=== PATIENT | female | born 1960 | race Caucasian/White ===

== ENCOUNTER 2020-12-12 10:56 | Outpatient (CLI) | payer OTHER, SELFPAY | END 2020-12-12 10:57 | disposition home or self-care (01) | PROVIDERS: PCP Family Medicine; Visit Provider Urology | DX: N39.3 Stress incontinence (female) (male) (principal) | CPT/HCPCS: 87086; 87088 ==

== ENCOUNTER → 2020-12-19 03:57 | Outpatient (CLI) | payer OTHER, SELFPAY ==
[2020-12-19 20:06] LABS: SARS-CoV-2 RNA PCR Negative
== END ==
PROVIDERS: PCP Family Medicine; Visit Provider Urology
DX: Z01.812 Encounter for preprocedural laboratory examination (principal); Z20.822 Contact with and (suspected) exposure to COVID-19
CPT/HCPCS: C9803; U0003; U0005

== ENCOUNTER 2020-12-22 01:55 | Day surgery (SDC) | payer OTHER, SELFPAY ==
[2020-12-12 10:44] VITALS: BMI 26.3
--- NOTE | 2020-12-15 19:25 | P.HP_ITS ---
H&P: HPI History of Present Illness Date/Time: 12/15/20 19:25 60-year-old woman with a history of stress incontinence here for surgical correction Chief Complaint: MAI Review of Systems Review of Systems: All systems reviewed & are unremarkable except as noted in HPI and below PMFSH Social History Social History Smoking status: Never smoker Second hand tobacco smoke exposure: No Alcohol intake: never Substance use: never Substance use type: does not use Spiritual care concerns: No Meds Home Medications and Allergies Home Medications Medication Instructions Recorded Confirmed Type ascorbic acid (vitamin C) [Vitamin 500 mg PO DAILY 12/12/20 12/12/20 History C] aspirin [Aspir-81] 81 mg PO DAILY 12/12/20 12/12/20 History multivitamin [Multi-Vitamin] 1 tablet PO DAILY 12/12/20 12/12/20 History zinc 1 tablet PO QAM 12/12/20 12/12/20 History Allergies Allergy/AdvReac Type Severity Reaction Status Date / Time No Known Allergies Allergy Unverified 12/12/20 10:41 Exam Const: General: cooperative and healthy appearing HENMT: Head: normal to inspection Eyes: General: appearance normal, both eyes and all related structures Neck: Neck: normal visual inspection Resp: Effort & Inspection: normal respiratory effort and able to speak in co mplete sentences Skin: General skin exam: normal color and no rashes or lesions noted Neuro: General: oriented to person and oriented to place Assessment and Plan Assessment and plan (1) MAI (stress urinary incontinence, female): Code(s): N39.3 - Stress incontinence (female) (male) Status: Acute Assessment and Plan: urethral sling
--- NOTE | 2020-12-21 12:56 | P.PNAN_ITS ---
Anes - Initial Pre Proc Eval Procedure: Operation Date: 12/22/20 08:15 Proposed Procedures p Urethral Sling - Jd Devlin MD Date/Time: 12/21/20 12:56 Surgeon: Jd Devlin MD Pre Op Diagnosis: stress incontinence Patient Data Age: 60 Gender: F Height: 1.68 m Weight: 74 kg Allergies Allergy/AdvReac Type Severity Reaction Status Date / Time No Known Allergies Allergy Unverified 12/12/20 10:41 Home Medications Medication Instructions Recorded Confirmed Type ascorbic acid (vitamin C) [Vitamin 500 mg PO DAILY 12/12/20 12/12/20 History C] aspirin [Aspir-81] 81 mg PO DAILY 12/12/20 12/12/20 History multivitamin [Multi-Vitamin] 1 tablet PO DAILY 12/12/20 12/12/20 History zinc 1 tablet PO QAM 12/12/20 12/12/20 History PMFSH Past Medical History Medical History (Updated 12/21/20 @ 12:56 by Osman Becerril MD) MAI (stress urinary incontinence, female) Social History Social History Smoking status: Never smoker Second hand tobacco smoke exposure: No Alcohol intake: never Substance use: never Substance use type: does not use Spiritual care concerns: No Anes - Eval Final PreProcedure Day of Procedure 12/21/20 12:56 Patient weight: overweight Heart: regular rate and rhythm Lungs: clear to auscultation and normal air movement Airway: Mallampati scale class II Neurological: alert and oriented Last oral intake: >/= 8 hours ASA classification: II Emergent: no Anesthetic plan: proceed Anesthesia type and monitoring: general GIVS, LMA and ETT Informed Consent: The patient's anesthetic plan and its attendant risks and bene fits were discussed with the patient/family/POA. Questions were solicited and answers provided to the satisfaction of the patient/family/POA.
[2020-12-22] MEDS: LACTATED RINGERS 1,000 ML 30 ML IV CONT (06:46)
[2020-12-22 07:02] VITALS: BP 112/63; PULSE 67; RESP 18; TEMP 36; O2SAT 98
--- NOTE | 2020-12-22 07:15 | WPDHPUPDATE1 ---
History and Physical Update Update Date/Time: 12/22/20 07:15 History and Physical has been reviewed, including an updated exam of the patient. There are NO changes in the patient's condition. Risks, benefits, and alternatives have been discussed and questions answered. Patient agrees to proceed with procedure.
--- NOTE | 2020-12-22 07:58 | P.PNAN_ITS ---
Anes - Initial Pre Proc Eval Procedure: Operation Date: 12/22/20 08:15 Proposed Procedures p Urethral Sling - Jd Devlin MD Date/Time: 12/22/20 07:58 Surgeon: Jd Devlin MD Pre Op Diagnosis: stress incontinence Patient Data Age: 60 Gender: F Height: 5 ft 6 in Weight: 73.4 kg Last Vital Signs Temp 96.8 F L 12/22/20 07:02 Pulse 67 12/22/20 07:02 Resp 18 12/22/20 07:02 BP 112/63 12/22/20 07:02 Pulse Ox 98 12/22/20 07:02 Allergies Allergy/AdvReac Type Severity Reaction Status Date / Time No Known Allergies Allergy Unverified 12/22/20 07:00 Home Medications Medication Instructions Recorded Confirmed Type ascorbic acid (vitamin C) [Vitamin 500 mg PO DAILY 12/12/20 12/22/20 History C] aspirin [Aspir-81] 81 mg PO DAILY 12/12/20 12/22/20 History multivitamin [Multi-Vitamin] 1 tablet PO DAILY 12/12/20 12/22/20 History zinc 1 tablet PO QAM 12/12/20 12/22/20 History Patient hx anesthesia problems: none Family hx anesthesia problems: none [facility] Past Medical History Medical History (Updated 12/21/20 @ 12:56 by Osman Becerril MD) MAI (stress urinary incontinence, female) Social History Social History Smoking status: Never smoker Second hand tobacco smoke exposure: No Alcohol intake: never Substance use: never Substance use type: does not use Living arrangements: with family Spiritual care concerns: No Anes - Eval Final PreProcedure Day of Procedure 12/22/20 07:58 Patient weight: overweight Heart: regular rate and rhythm Lungs: clear to auscultation Airway: Mallampati scale class II Neurological: alert and oriented Last oral intake: >/= 8 hours ASA classification: II Emergent: no Anesthetic plan: proceed Anesthesia type and monitoring: general LMA and standard monitoring Informed Consent: The patient's anesthetic plan and its attendant risks and benefits were discussed with the patient/family/POA. Questions were solicited and answers provided to the satisfaction of the patient/family/POA.
[2020-12-22] MEDS: ceFAZolin 2 GM/D5W 50 ML 2 GM/50 ML BAG IVPB (08:13)
[2020-12-22] MEDS: LIDO 1%/EPINEPHRINE 1:100,000 50 ML VIAL 10 ML INFILTRATE (08:29)
[2020-12-22 08:40] VITALS: BP 103/56; PULSE 59; RESP 14; O2SAT 95
--- NOTE | 2020-12-22 08:41 | PM.PROC ---
Procedure Note - Detailed Date of procedure: 12/22/20 Pre-op diagnosis: stress incontinence Stress urinary incontinence Post-op diagnosis: same Procedure performed: Transobturator Mid-urethral sling Cystoscopy Description of procedure: Anesthesia: Mac/local This is a patient with confirmed stress urinary incontinence. She desires correction. She understands the risks of bleeding, infection, damage to the urinary tract, lack of cure of stress incontinence, recurrence of stress incontinence, postoperative voiding dysfunction including incontinence and retention, need for ancillary procedures to loosen remove the sling, postoperative voiding dysfunction including retention and overactive bladder, hip and leg pain, dyspareunia, mesh related complications including exposure and extrusion. She agrees to proceed. She understands it will not help overactive bladder symptoms if present. She was correctly identified and informed consent obtained. She is brought to the operating room. She was given appropriate anesthesia. She was placed in the dorsal lithotomy position. All pressure points were padded. She was given appropriate perioperative antibiotics and a time-out performed. A Richmond catheter is placed. I marked out the thigh incisions anesthetize the skin and made those incisions. I anesthetized the anterior vaginal wall over the mid urethra. I made a 1 cm incision. I dissected out laterally taking great care not to injure the urethra or the vaginal wall. Passed the helical trocars 1st on the left and then on the right from the thigh incision towards the vaginal incision. Sling was connected to the trocars and brought out through the thigh incision. I tensioned the sling appropriately. I cut and removed the plastic sheaths. I closed the incision with 2 0 Vicryl. I then performed cystoscopy. There was no surgical artifact or abnormalities inside the bladder. The urethra was normal without surgical artifact. I cut the excess sling material. I closed the incisions with glue. She was awakened and transferred to the PACU in stable condition. Implants: Mid urethral sling Surgeon: Jd Devlin MD Drains: No Packing: No Pathology: none sent Complications: No immediate complications Condition: stable Disposition: PACU
[2020-12-22 09:10] VITALS: BP 138/65; PULSE 68; RESP 14; O2SAT 100
[2020-12-22 09:30] VITALS: BP 126/67; PULSE 62; RESP 14
== END 2020-12-22 09:47 | disposition home or self-care (01) ==
PROVIDERS: PCP Family Medicine; Visit Provider Urology
PROC: (CPT 57288; principal; 2020-12-22 08:15)
DX: N39.3 Stress incontinence (female) (male) (principal)
CPT/HCPCS: 57288; A9270; C1771; J0690; J2704; J3010; J7030; J7120

== ENCOUNTER → 2021-09-05 08:57 | Outpatient (CLI) | payer OTHER, SELFPAY ==
[2021-09-05 17:57] LABS: SARS-CoV-2 RNA PCR Negative
== END ==
PROVIDERS: PCP Internal Medicine; Visit Provider Internal Medicine
DX: Z20.822 Contact with and (suspected) exposure to COVID-19 (principal)
CPT/HCPCS: C9803; U0003; U0005

== ENCOUNTER 2025-01-13 12:19 | Outpatient (CLI) | payer MEDICARE, SELFPAY ==
--- NOTE | ~2025-01-13 | MM_ITS ---
EXAMINATION: MM screening jarrod BI w jade HISTORY: Screening TECHNIQUE: Craniocaudal and mediolateral oblique 3-D tomosynthesis images were obtained and synthetic 2-D images were generated. CAD analysis was submitted and interpreted. COMPARISON: No prior mammogram is available for comparison at this institution. BREAST PARENCHYMAL COMPOSITION: Not dense: There are scattered areas of fibroglandular density. FINDINGS: There is no evidence of suspicious mass, calcification, or architectural distortion to sugg est malignancy in either breast. There has been no suspicious interval change. IMPRESSION: 1. No mammographic evidence of malignancy. 2. Recommend routine screening mammography in one year. BI-RADS Category 1: Negative Reviewed, dictated and finalized at location B.
--- OUTSIDE RECORDS SUMMARY | 2025-01-13 12:51 | XMS_ITS | Clinical Summary ---
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 Gender Identity Not on file Sexual Orientation Not on file Plan of Treatment Health Maintenance Due Date Last Done Comments DEXA Bone Density 1959 Hepatitis C Virus (HCV) Screening 1959 TdaP Immunization 1959 Pap Smear 1980 Cervical Cancer Screening (CCS) 1989 HPV/Cotest 1989 Colonoscopy 2004 Colorectal Cancer Screening 2004 Cologuard 2009 Immunochemical Fecal Occult Blood 2009 Mammogram 2009 Pneumococcal Immunization (5 0+ years) (1 of 1 - PCV) 2009 Zoster Immunization (1 of 2) 2009 Influenza Immunization (#1) 2024 SARS-COV-2 Immunization (2023-25 season) 2024 Respiratory Syncytial Virus (RSV) Immunization (Adult) (1 - 1-dose 75+ series) 2034 Hepatitis B Immunization Aged Out No longer eligible based on patient's age to complete this topic Meningococcal Immunization (ACWY) Aged Out No longer eligible based on patient's age to complete this topic Pneumococcal Immunization Combined Aged Out No longer eligible based on patient's age to complete this topic Rotavirus Immunization Aged Out No lo nger eligible based on patient's age to complete this topic
--- OUTSIDE RECORDS SUMMARY | 2025-01-13 12:51 | XMS_ITS | Clinical Summary ---
Author Organization [facility] [address] Address [address] [place] [id number] Care Team Providers Care Full Stack Python Developer Name Role Phone Anila Dyer MD Unavailable [phone] Annamaria Cueva NP Primary Care Provider [phone] Allergies No known active allergies Medications aspirin 81 mg enteric coated tablet Take 1 tablet (81 mg total) by mouth daily Active vitamin B complex with vitamin C tabletIndication s:Vitamin Deficiency Prevention Take 1 tablet by mouth daily Active zinc gluconate 100 mg tablet Take by mouth Active ascorbic acid (ascorbic acid with alena hips) 500 mg tablet,chewable Acti ve Active Problems Problem Noted Date Diagnosed Date Annual physical exam 10/16/2023 Assessment & Plan (10/20/2024 7:20 AM CDT): -Recommended: Healthy diet. Avoiding junk food/fast food. -30 minutes of exercise most days of the week. Increase to 45 minutes for weight loss. Health Maintenance reviewed - patient has an up-to-date today mammogram and colonoscopy. Labs ordered today. We will get records of the mammogram and colonoscopy.. -Influenza vaccine every year Recommend: - Topic Date Due DTaP/Tdap/Td Vaccine (1 - Tdap) Never done -F/u in 1 year for Annual PE or sooner if needed Assessment & Plan (10/16/2023 2:28 PM CDT): -Recommended: Healthy diet. Avoiding junk food/fast food. -30 minutes of exercise most days of the week. Increase to 45 minutes for weight loss. Health Maintenance reviewed - patient has an up-to-date today mammogram and colonoscopy. Labs ordered today. We will get records of the mammogram and colonoscopy.. -Influenza vaccine every year Recommend: - Topic Date Due DTaP/Tdap/Td Vaccine (1 - Tdap) Never done -F/u in 1 year for Annual PE or sooner if needed Trigger middle finger of left hand 10/16/2023 Assessment & Plan (10/16/2023 2:42 PM CDT): Refer to orthopedics. Recommended massage and keeping flexible. Rash and nonspecific skin eruption 10/16/2023 Assessment & Plan (10/16/2023 2:42 PM CDT): Unknown etiology. Checking labs today. Refer to dermatology Encounters Date Type Department Care Team Description 10/21/2024 Documentation [facility] at [address] [phone] Annamaria Cueva NP 10/21/2024 Results Follow-Up [facility] at [address] [phone] Annamaria Cueva NP Hemoglobin A1c, CBC with auto differential, Comprehensive metabolic panel, Additional followed-up results: 4 10/20/2024 8:01 AM CDT - 10/20/2024 11:59 PM CDT Hospital Encounter [place] [phone] Screening for diabetes mellitus; Screening for deficiency anemia; Screening for metabolic disorder; Lipid screening; Thyroid disorder screen Discharge Disposition: Discharge to home or self care 10/20/2024 8:00 AM CDT Lab [facility] at [address] [phone] Screening for deficiency anemia (Primary Dx) 10/20/2024 7:00 AM CDT Office Visit [facility] at [address] [phone] Annamaria Cueva NP Screening for deficiency anemia (Primary Dx); Screening for metabolic disorder; Lipid screening; Thyroid disorder screen; Screening for diabetes mellitus; Medicare annual wellness visit, subsequent from Last 3 Months Immunizations Immunization Administration Dates Next Due Influenza LAIV (Nasal) 10/16/2023(Deferr ed: Patient Refused),08/04/2022(Deferred: Patient Refused) Family History Medical History Relation Name Comments Heart disease Father Carlos A Stroke Father Carlos A Relation Name Status Comments Brother Alive Father Carlos A Mother Alive Social History Tobacco Use Types Packs/Day Years Used Date Smoking Tobacco: Never Cigarettes Smokeless Tobacco: Never PHQ-2 Answer Date Recorded PHQ-2 Total Score (If total score is 3 or more points, staff should administer the PHQ-9) 0 10/20/2024 Comments Unknown Sex and Gender Information Value Date Recorded Sex Assigned at Not on file 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 Gender Identity Not on file Sexual Orientation Not on file Obstetrics History Last Filed Vital Signs Vital Sign Reading Time Taken Comments Blood Pressure 104/68 10/20/2024 7:04 AM CDT Pulse 56 10/20/2024 7:04 AM CDT Temperature 36.3 C (97.4 F) 10/20/2024 7:04 AM CDT Respiratory Rate 18 10/20/2024 7:04 AM CDT Oxygen Saturation 96% 10/20/2024 7:04 AM CDT Inhaled Oxygen Concentration - - Weight 77.5 kg (170 lb 14.4 oz) 10/20/2024 7:04 AM CDT Height 167.6 cm (5' 6) 10/20/2024 7:04 AM CDT Body Mass Index 27.58 10/20/2024 7:04 AM CDT Plan of Treatment Health Maintenance Due Date Last Done Comments Cervical Cancer Screening 1959 Hepatitis C Screening 1959 DTaP/Tdap/Td Vaccine (1 - Tdap) 1970 Hepatitis B Screening 1977 Pneumococcal vaccine 65+ (1 of 1 - PCV) 2009 Zoster Vaccine (1 of 2) 2009 Covid-19 Vaccine (3 - season) 2024, 10/07/2020 Colon Cancer Screening-Colonoscopy 11/24/20242017 Breast Cancer Screening-Mammogram 12/14/2024 025, 12/15/2023 Influenza Vaccine (Season Ended) 2025 Depression Screening 10/20/2025 10/20/2024, 10/16/19 Fall Risk Assessment 10/20/2025 10/20/2024 Well Visit 65+ 10/20/2025 10/20/2024, 10/16/2023 Osteoporosis Screening-Bone Density Scan 12/14/2025 10/21/2024 Procedures Procedure Name Priority Date/Time Associated Diagnosis Comments DEXA AXIAL SKELETON BONE DENSITY 1 OR MORE SITES Schedule Routine, Read Routine (OP Routine) 10/21/2024 10:22 AM CDT SCREENING MAMMOGRAM Schedule Routine, Read Routine (OP Routine) 10/21/2024 10:21 AM CDT EGFR Routine 10/20/2024 8:01 AM CDT Screening for metabolic disorder DIFFERENTIAL AUTO Routine 10/20/2024 8:0 1 AM CDT Screening for deficiency anemia THYROID FUNCTION CASCADE Routine 10/20/2024 8:01 AM CDT Thyroid disorder screen LIPID PANEL Routine 10/20/2024 8:01 AM CDT Lipid screening COMPREHENSIVE METABOLIC PANEL Routine 10/20/2024 8:01 AM CDT Screening for metabolic disorder CBC WITH AUTO DIFFERENTIAL Routine 10/20/2024 8:01 AM CDT Screening for deficiency anemia HEMOGLOBIN A1C Routine 10/20/2024 8:01 AM CDT Screening for diabetes mellitus COLONOSCOPY Routine 11/24/2017 from Last 3 Months or Most Recently Relevant to Health Maintenance Results * Dexa Axial Skeleton Bone Density 1 or 2 Site (10/21/2024 10:22 AM CDT) Anatomical Region Laterality Modality Body N/A Radiographic Irena ging us Historical Provider MD HOYOS DXA PROCEDURES Final Result * Screening Mammogram (10/21/2024 10:21 AM CDT) Anatomical Region Laterality Modality Breast N/A Mammography us Historical Provider MD HOYOS MAMMO PROCEDURES Denisse l Result * (ABNORMAL) eGFR (10/20/2024 8:01 AM CDT) eGFR 55(L) >=60 mL/min/1. 73 m2 Comment: Interpretive Data Reference Interval Normal >/= 90 mL/min/1.73m2 Mildly decreased* 60 - 89 mL/min/1.73m2 Mildly to moderately decreased 45 - 59 mL/min/1.73m2 Moderately to severely decreased 30 - 44 mL/min/1.73m2 Severely decreased 15 - 29 mL/min/1.73m2 Kidney Failure < 15 mL/min/1.73m2 *Relative to young adult level Estimated glomerular filtration rate is determined by the 2020 CKD-EPI equation recommended by the National Kidney Foundation (A Unifying Approach to GFR Estimation: Recommendations of the NKF-ASK Task Force on Reassessing the Inclusion of Race in Diagnosing Kidney Disease, JASN 2020). The CKD-EPI equation should not be used for patients with unstable renal function and has not been validated in children and those over 70. Current interpretive data was last reviewed 2021. Blood 10/20/2024 8:01 AM CDT 10/20/2024 7:07 PM CDT Annamaria Cueva NP LAB BLOOD ORDERABLES Final Re sult [facility] [id number] Department [place] [address] * Differential, auto (10/20/2024 8:01 AM CDT) Neutrophil abs 2.7 1.5 - 6.5 K/cumm Imm gran abs 0.0 0.0 - 0.1 K/cumm [facility] Lymphocyte abs 1.7 0.8 - 3.3 K/cumm [facility] Monocyte abs 0.5 0.2 - 0.8 K/cumm [facility] Eosinophil abs 0.3 0.0 - 0.5 K/cumm [facility] Basophil abs 0.0 0.0 - 0.1 K/cumm [facility] Neutrophil pct 53.1 % [facility] Comment: Interpretive Data Percent cell count reference ranges are not reported, since discordance with absolute values may lead to misinterpretation of CBC data. Current Interpretive Data was last revised on 2017. Imm gran pct 0.2 % [facility] Comment: Interpretive Data Percent cell count reference ranges are not reported, since discordance with absolute values may lead to misinterpretation of CBC data. Current Interpretive Data was last revised on 2017. Lymphocyte pct 32.2 % [facility] Comment: Interpretive Data Percent cell count reference ranges are not reported, since discordance with absolute values may lead to misinterpretation of CBC data. Current Interpretive Data was last revised on 2017. Monocyte pct 8.9 % [facility] Comment: Interpretive Data Percent cell count reference ranges are not reported, since discordance with absolute values may lead to misinterpretation of CBC data. Current Interpretive Data was last revised on 2017. Eosinophil pct 5.0 % [facility] Comment: Interpretive Data Percent cell count reference ranges are not reported, since discordance with absolute values may lead to misinterpretation of CBC data. Current Interpretive Data was last revised on 2017. Basophil pct 0.6 % [facility] Comment: Interpretive Data Percent cell count reference ranges are not reported, since discordance with absolute values may lead to misinterpretation of CBC data. Current Interpretive Data was last revised on 2017. Blood 10/20/2024 8:01 AM CDT 10/20/2024 6:56 PM CDT Annamaria Cueva NP LAB BLOOD ORDERABLES Final Re sult [facility] [id number] [address] Department [place] [address] * Thyroid Function Van (10/20/2024 8:01 AM CDT) TSH 2.86 0.30 - 4.20 mcIUnit/mL Blood 10/20/2024 8:01 AM CDT 10/20/2024 6:56 PM CDT Annamaria Cueva NP LAB BLOOD ORDERABLES Final Re sult Performing Organization Address City/[facility]/ZIP Co de Phone Number STEPH[facility]IE GRAC[facility] [phone] [address] Department of [employer] [place], [place] [id number] * (ABNORMAL) CBC with auto differential (10/20/2024 8:01 AM CDT) WBC 5.2 3.8 - 9.9 K/cumm Hgb 13.9 11.9 - 15.5 g/dL [facility] Hct 44.5 35.6 - 45.5 % [facility] Plt 217 150 - 400 K/cumm [facility] MPV 11.5 9.1 - 12.3 fL [facility] RBC 4.56 3.90 - 5.20 M/cumm [facility] MCV 97.6(H) 81.3 - 96.4 fL [facility] MCH 30.5 27.1 - 33.3 pg [facility] MCHC 31.2(L) 32.3 - 35.7 g/dL [facility] RDW CV 13.0 11.1 - 14.9 % [facility] RDW SD 46.6 35.7 - 48.1 fL [facility] NRBC abs 0.00 0.00 - 0.01 K/cumm [facility] Blood 10/20/2024 8:01 AM CDT 10/20/2024 6:56 PM CDT Annamaria Cueva NP LAB BLOOD ORDERABLES Final Re sult Performing Organization Address City/[facility]/ZIP Co de Phone Number STEPH[facility]IE GRAC[facility] [id number] [address] Department of [employer] [place], [place] [phone] * Hemoglobin A1c (10/20/2024 8:01 AM CDT) Hgb A1C 5.4 4.0 - 5.6 % Estimated Average Glucose 108 mg/dL [facility] Comment: The ADA recommends reporting an estimated Average Glucose (eAG) with all Hemoglobin A1c results using the equation derived from a study of 507 normal and diabetic adults. Minority populations were underrepresented and children were not included. (Diabetes Care 31:9990-5071, 2008). The eAG is not equivalent to a fasting glucose. Blood 10/20/2024 8:01 AM CDT 10/20/2024 6:56 PM CDT us Annamaria Cueva NP LAB BLOOD ORDERABLES Final Re sult [facility] [address] [address] Department [place] [address] * (ABNORMAL) Lipid panel (10/20/2024 8:01 AM CDT) Cholesterol 273(H) 30 - 199 mg/dL Comment: Interpretive Data Ages < or = 19 years Acceptable: <170 mg/dL Borderline high: 170-199 mg/dL High: >or= 200 mg/dL Ages > or = 20 years Desirable: <200 mg/dL Borderline high: 200-239 mg/dL High: >or= 240 mg/dL Literature References: 1. Expert Panel on Integrated Guidelines for Cardiovascular Health and Risk Reduction in Children and Adolescents. Pediatrics 2011;128:S213 2. NCEP Expert Panel. Circulation 2004;110:227 Current Interpretive Data was last revised on 2018. Triglycerides 101 <=149 mg/dL [facility] Comment: Interpretive Data Ages < or = 9 years Acceptable: <75 mg/dL Borderline high: 75-99 mg/dL High: >or= 100 mg/dL Ages 10 to 20 years Acceptable: <90 mg/dL Borderline high: 90-129 mg/dL High: >or= 130 mg/dL Ages > or = 20 years Desirable: <150 mg/dL Borderline high: 150-199 mg/dL High: 200-499 mg/dL Very high: >or= 499 mg/dL Literature References: 1. Expert Panel on Integrated Guidelines for Cardiovascular Health and Risk Reduction in Children and Adolescents. Pediatrics 2011;128:S213 2. NCEP Expert Panel. Circulation 2004;110:227 Current Interpretive Data was last revised on 2018. HDL 51 >=40 mg/dL [facility] Comment: Interpretive Data Ages < or = 19 years Acceptable: >45 mg/dL Borderline low: 40-45 mg/dL Low: <40 mg/dL Ages > or = 20 years Desirable: >or= 60 mg/dL Low: <40 mg/dL Literature References: 1. Expert Panel on Integrated Guidelines for Cardiovascular Health and Risk Reduction in Children and Adolescents. Pediatrics 2011;128:S213 2. NCEP Expert Panel. Circulation 2004;110:227 Current Interpretive Data was last revised on 2018. LDL, calculated 204(H) <=129 mg/dL [facility] Comment: Interpretive Data Ages < or = 19 years Acceptable: <110 mg/dL Borderline high: 110-129 mg/dL High: >or= 130 mg/dL Ages > or = 20 years Optimal: <100 mg/dL Near optimal: 100-129 mg/dL Borderline high: 130-159 mg/dL High: >160 mg/dL Calculated using the Bill LDL-C estimating equation. This equation was implemented on 2024. Prior to this date LDL-C was estimated using the Friedewald equation. Literature References: 1. Expert Panel on Integrated Guidelines for Cardiovascular Health and Risk Reduction in Children and Adolescents. Pediatrics 2011;128:S213 2. NCEP Expert Panel. Circulation 2004;110:227 3. Bill Avtiia et al. ZACHARY Cardiol. 2019December 02;5(5):540-548. doi: 10.1001/[email or web address].2020.0013 Current Interpretive Data was last revised on 2024. Non-HDL Cholesterol 222 mg/dL [facility] Comment: Interpretive Data Ages < or = 19 years Acceptable: <120 mg/dL Borderline high: 120-144 mg/dL High: >145 mg/dL Ages > or = 20 years When triglycerides are >200 mg/dL, Non-HDL cholesterol is a secondary target of therapy with treatment goals that are 30 mg/dL greater than the LDL cholesterol target. Literature References: 1. Expert Panel on Integrated Guidelines for Cardiovascular Health and Risk Reduction in Children and Adolescents. Pediatrics 2011;128:S213 2. NCEP Expert Panel. Circulation 2004;110:227 Current Interpretive Data was last revised on 2018. Chol/HDL ratio 5 [facility]AC[facility] Blood 10/20/2024 8:01 AM CDT 10/20/2024 6:56 PM CDT Annamaria Cueva NP LAB BLOOD [place] [address] [address] Department [place] [address] * (ABNORMAL) Comprehensive metabolic panel (10/20/2024 8:01 AM CDT) Sodium 139 135 - 145 mmol/L Potassium, pl 4.6 3.3 - 4.9 mmol/L [facility] Chloride 102 97 - 110 mmol/L [facility] CO2 25 22 - 32 mmol/L [facility] Anion gap 12 2 - 15 mmol/L [facility] BUN 21 6 - 25 mg/dL [facility] Creatinine 1.12(H) 0.60 - 1.10 mg/dL [facility] Glucose 87 70 - 199 mg/dL [facility] Comment: Interpretive Data Fasting glucose >/= 126 mg/dl is diagnostic for diabetes. Fasting is defined as no caloric intake for at least 8 hours. Fasting glucose between 100 mg/dl to 125 mg/dl is diagnostic of prediabetes. In a patient with classic symptoms of hyperglycemia or hyperglycemic crisis, a random glucose >/= 200 mg/dl is diagnostic for diabetes. In the absence of unequivocal hyperglycemia, results should be confirmed by repeat testing. The classification and Diagnosis of Diabetes Diabetes Care 202; 46: S19-S40. Current interpretive data was last revised 2022. Calcium 9.6 8.5 - 10.3 mg/dL [facility] Bilirubin, total 0.4 0.1 - 1.2 mg/dL [facility] Protein, pl 7.5 6.5 - 8.5 g/dL [facility] Albumin 4.4 3.5 - 5.0 g/dL [facility] Alk phos 78 40 - 130 Units/L [facility] ALT 25 7 - 45 Units/L [facility] AST 34 10 - 45 Units/L [facility] Blood 10/20/2024 8:01 AM CDT 10/20/2024 6:56 PM CDT Annamaria Cueva NP LAB BLOOD [place] [address] [address] Department [place] [address] * Colonoscopy (11/24/2017) Anatomical Region Laterality Modality Other us Historical Provider ENDOSCOPY PROCEDURES Denisse l Result from Last 3 Months or Most Recently Relevant to Health Maintenance Insurance [employer] MEDICARE REPLACED BY [facility] [id number] Care Teams Full Stack Python Developer Relationship Specialty Start Date End Date Annamaria Cueva NP [address] [place] [address] PCP - General Family Medicine 01/13/25 Anila Dyer MD [address] [place] [address] Obstetrics and Gynecology 10/20/24
--- OUTSIDE RECORDS SUMMARY | 2025-01-13 12:52 | XMS_ITS | Referral Summary ---
Author Organization [address] [address] Care Team Providers Care Artist And Repertoire Manager Name Role Phone Anila Dyer MD Unavailable [phone] Annamaria Cueva NP Primary Care Provider [phone] Encounters Date Type Department Care Team Description 10/21/2024 Documentation [facility] Medical [facility] at [address] [address] Annamaria Cueva NP 10/21/2024 Results Follow-Up [facility] at [address] [address] Annamaria Cueva NP Hemoglobin A1c, CBC with auto differential, Comprehensive metabolic panel, Additional followed-up results: 4 10/20/2024 8:01 AM CDT - 10/20/2024 11:59 [place] [address] Screening for diabetes mellitus; Screening for deficiency anemia; Screening for metabolic disorder; Lipid screening; Thyroid disorder screen Discharge Disposition: Discharge to home or self care 10/20/2024 8:00 AM CDT Lab [facility] at [address] [address] Screening for deficiency anemia (Primary Dx) 10/20/2024 7:00 AM CDT Office Visit [facility] at [address] [address] Annamaria Cueva NP Screening for deficiency anemia (Primary Dx); Screening for metabolic disorder; Lipid screening; Thyroid disorder screen; Screening for diabetes mellitus; Medicare annual wellness visit, subsequent from Last 3 Months Allergies No known active allergies Medications aspirin [...] etiology. Checking labs today. 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 Gender Identity Not on file Sexual Orientation Not on file Last Filed Vital Signs Vital Sign Reading [...] 10/20/2024 7:04 AM CDT Plan of Treatment Not on file Procedures Procedure Name Priority Date/Time Associated Diagnosis [...] Laterality Modality Body N/A Radiographic Irena ging Historical Provider MD HOYOS DXA PROCEDURES Final [...] NP LAB BLOOD ORDERABLES Final Re sult [facility] [address] Department [place] [address] * Differential, auto (10/20/2024 8:01 AM CDT) Neutrophil abs 2.7 1.5 - 6.5 K/cumm Imm gran abs 0.0 0.0 - 0.1 K/cumm [facility] Lymphocyte abs 1.7 0.8 - 3.3 K/cumm [facility] Monocyte abs 0.5 0.2 - 0.8 K/cumm [facility] Eosinophil abs 0.3 0.0 - 0.5 K/cumm [facility] Basophil abs 0.0 0.0 - 0.1 K/cumm [facility] Neutrophil pct 53.1 % [facility] Comment: Interpretive Data Percent cell count reference ranges are not reported, since discordance with absolute values may lead to misinterpretation of CBC data. Current Interpretive Data was last revised on 2017. Imm gran pct 0.2 % [facility] Comment: Interpretive Data Percent cell count reference ranges are not reported, since discordance with absolute values may lead to misinterpretation of CBC data. Current Interpretive Data was last revised on 2017. Lymphocyte pct 32.2 % [facility] Comment: Interpretive Data Percent cell count reference ranges are not reported, since discordance with absolute values may lead to misinterpretation of CBC data. Current Interpretive Data was last revised on 2017. Monocyte pct 8.9 % [facility] Comment: Interpretive Data Percent cell count reference ranges are not reported, since discordance with absolute values may lead to misinterpretation of CBC data. Current Interpretive Data was last revised on 2017. Eosinophil pct 5.0 % [facility] Comment: Interpretive Data Percent cell count reference ranges are not reported, since discordance with absolute values may lead to misinterpretation of CBC data. Current Interpretive Data was last revised on 2017. Basophil pct 0.6 % [facility] Comment: Interpretive Data Percent cell count reference ranges are not reported, since discordance with absolute values may lead to misinterpretation of CBC data. Current Interpretive Data was last revised on 2017. Blood 10/20/2024 8:01 AM CDT 10/20/2024 6:56 PM CDT Annamaria Cueva THERMODYNAMICIST LAB BLOOD ORDERABLES Final Re sult Performing Organization Address [facility] Co de Phone Number STEPHANIE GRACIA [address] [facility] [employer] [place], [place] [id number] * Thyroid Function [place] (10/20/2024 8:01 AM CDT) [facility] TSH 2.86 0.30 - 4.20 mcIUnit/mL Blood 10/20/2024 8:01 AM CDT 10/20/2024 6:56 PM CDT Annamaria Cueva NP LAB BLOOD ORDERABLES Final Re sult Performing Organization Address [facility] de Phone Number STEPHANIE GRACIA [address] [facility] [place] [address] * (ABNORMAL) CBC with auto differential (10/20/2024 8:01 AM CDT) Pathologist [facility] WBC 5.2 3.8 - 9.9 K/cumm Hgb 13.9 11.9 - 15.5 g/dL [facility] Hct 44.5 35.6 - 45.5 % [facility] Plt 217 150 - 400 K/cumm [facility] MPV 11.5 9.1 - 12.3 fL [facility] RBC 4.56 3.90 - 5.20 M/cumm [facility] MCV 97.6(H) 81.3 - 96.4 fL [facility] MCH 30.5 27.1 - 33.3 pg [facility] MCHC 31.2(L) 32.3 - 35.7 g/dL [facility] RDW CV 13.0 11.1 - 14.9 % [facility] RDW SD 46.6 35.7 - 48.1 fL [facility] NRBC abs 0.00 0.00 - 0.01 K/cumm [facility] Blood 10/20/2024 8:01 AM CDT 10/20/2024 6:56 PM CDT Annamaria Cueva NP LAB BLOOD ORDERABLES Final Re sult Performing Organization Address [facility] de Phone Number [facility] [address] [place] [address] * Hemoglobin A1c (10/20/2024 8:01 AM CDT) Hgb A1C 5.4 4.0 - 5.6 % Estimated Average Glucose 108 mg/dL [facility] Comment: The ADA recommends reporting an estimated Average Glucose (eAG) with all Hemoglobin A1c results using the equation derived from a study of 507 normal and diabetic adults. Minority populations were underrepresented and children were not included. (Diabetes Care 31:9656-4789, 2008). The eAG is not equivalent to a fasting glucose. Blood 10/20/2024 8:01 AM CDT 10/20/2024 6:56 PM CDT Annamaria Cueva NP LAB BLOOD ORDERABLES Final Re sult Performing Organization Address [facility] de Phone Number [facility] [address] [place] [address] * (ABNORMAL) Lipid panel (10/20/2024 8:01 AM [...] on 2018. Triglycerides 101 <=149 mg/dL [facility] Comment: Interpretive Data Ages < or = [...] on 2018. HDL 51 >=40 mg/dL [facility] Comment: Interpretive Data Ages < or = [...] 2018. LDL, calculated 204(H) <=129 mg/dL [facility] Comment: Interpretive Data Ages < or = [...] NCEP Expert Panel. Circulation 2004;110:227 3. Bill Avitia et al. ZACHARY Cardiol. 2019December 02;5(5):540-548. doi: 10.1001/jamacardio.2020.0013 Current Interpretive Data was last revised on 2024. Non-HDL Cholesterol 222 mg/dL [facility] Comment: Interpretive Data Ages < or = [...] last revised on 2018. Chol/HDL ratio 5 [facility] CH Blood 10/20/2024 8:01 AM CDT 10/20/2024 6:56 PM CDT Annamaria Cueva NP LAB BLOOD ORDERABLES Final Re sult [facility] [address] Department of Laboratories [place], [place] [phone] * (ABNORMAL) Comprehensive metabolic panel (10/20/2024 8:01 AM CDT) Sodium 139 135 - 145 mmol/L Potassium, pl 4.6 3.3 - 4.9 mmol/L [facility] Chloride 102 97 - 110 mmol/L [facility] CH CO2 25 22 - 32 mmol/L [facility] CH Anion gap 12 2 - 15 mmol/L [facility] CH BUN 21 6 - 25 mg/dL [facility] Creatinine 1.12(H) 0.60 - 1.10 mg/dL [facility] Glucose 87 70 - 199 mg/dL [facility] [...] NP LAB BLOOD ORDERABLES Final Re sult [facility] [address] Department [place] [address] * Colonoscopy (11/24/2017) Anatomical Region Laterality Modality Other Historical Provider ENDOSCOPY PROCEDURES Denisse l Result from Last 3 Months or Most Recently Relevant to Health Maintenance Insurance [facility] MEDICARE [facility] [id number] Care Teams Artist And Repertoire Manager Relationship Specialty Start Date End Date Annamaria Cueva NP [address] [place] [address] PCP - General Family Medicine 01/13/25 Anila Dyer MD [address] [place] [address] Obstetrics and Gynecology 10/20/24
== END 2025-01-13 12:20 | disposition home or self-care (01) ==
LOC: CHSIMG 12:20
PROVIDERS: PCP Nurse Practitioner Family; Visit Provider Obstetrics & Gynecology
DX: Z12.31 Encounter for screening mammogram for malignant neoplasm of breast (principal)
CPT/HCPCS: 77063; 77067